=== PATIENT | female | born 2000 | race Caucasian/White ===

== ENCOUNTER 2020-12-15 14:39 | Emergency (ER) | payer OTHER ==
[2020-12-15 14:45] VITALS: BP 104/75; PULSE 102; TEMP 98; BMI 22.3
[2020-12-15 16:14] LABS: BASO % 0.7 % (0-2.0); EOS % 0.5 % (0-4.5); HEMATOCRIT 36.6 % (32.4-45.2); HEMOGLOBIN 12.4 GM/dL (10.7-15.3); LYMPH % 22.1 % (8-40); MCH 31.1 pg (25.7-33.7); MCHC 33.9 g/dl (32.0-36.0); MEAN CELL VOLUME 91.9 fl (80-96); MEAN PLT VOLUME 8.7 fl (7.5-11.1); MONO % 7.3 % (3.8-10.2); NEUT % 69.4 % (42.8-82.8); PLATELET COUNT 220 K/MM3 (134-434); RBC 3.99 M/mm3 (3.60-5.2); WHITE BLOOD COUNT 6.6 K/mm3 (4.0-10.0)
[2020-12-15 16:20] LABS: URINE APPEARANCE CLEAR; URINE BILIRUBIN NEGATIVE (NEGATIVE); URINE COLOR YELLOW; URINE GLUCOSE (UA) NEGATIVE (NEGATIVE); URINE KETONE NEGATIVE (NEGATIVE); URINE LEUK ESTERASE NEGATIVE (NEGATIVE); URINE NITRITE NEGATIVE (NEGATIVE); URINE PROTEIN NEGATIVE (NEGATIVE)
[2020-12-15 16:24] LABS: POTASSIUM 4.2 mmol/L (3.5-5.1)
[2020-12-15 16:25] LABS: CALCIUM 8.6 mg/dL (8.5-10.1)
[2020-12-15 16:26] LABS: BLOOD UREA NITROGEN 15.5 mg/dL (7-18)
[2020-12-15 16:29] LABS: CREATININE 0.8 mg/dL (0.55-1.3)
[2020-12-15 16:31] LABS: BILIRUBIN,TOTAL 0.4 mg/dL (0.2-1); TOT PROT 7.3 g/dl (6.4-8.2)
== END 2020-12-15 18:30 | disposition home or self-care (01) ==
LOC: JER 14:39
DX: O26.851 Spotting complicating pregnancy, first trimester (principal); Z3A.01 Less than 8 weeks gestation of pregnancy
CPT/HCPCS: 36415; 76817-TC; 80053; 81003; 84702; 85025; 86850; 86900; 86901; 87086; 99284-25